=== PATIENT | male | born 1985 | race Caucasian/White ===

== ENCOUNTER 2017-02-23 07:03 | Emergency (ER) | payer SELFPAY ==
[~2017-02-23] VITALS: Ht 165.1 cm; Wt 75.0 kg
[2017-02-23 07:09] VITALS: Ht 165.1 cm; Wt 75.0 kg
--- NOTE | 2017-02-23 08:05 | RADRPT ---
PROCEDURE: XR Abdomen. CLINICAL INDICATION: Abdominal pain, constipation TECHNIQUE: AP abdomen x-ray. COMPARISON: None. FINDINGS: There is stool seen in the ascending colon. There is no evidence of bowel obstruction. There are no abnormal calcifications overlying the urinary tracts. The osseus structures are unremarkable. IMPRESSION: Stool is seen in the ascending colon without evidence of bowel obstruction. RPTAT:AAJJ Physician Carlie Date Time Electronically viewed and signed by Jung Gonzalez Physician on 02/23/2017 08:05 MARY/
[2017-02-23] MEDS ORDERED: DICY10CA60 PO (08:13)
[2017-02-23] MEDS ORDERED: PSYL1040 PO (08:13)
--- NOTE | 2017-02-23 08:22 | ERD ---
ER Documentation Chief Complaint Chief Complaint Patient states left upper quadrant abdomonal pain denies flank pain HPI This is a 31-year-old male presents to the ER with left lower quadrant abdominal pain that started 2 weeks ago. Pain is intermittent and worse whenever he is not able to have a bowel movement. Patient states he does feel constipated and has had difficulty having bowel movements. He denies any nausea vomiting or diarrhea. He denies any urinary frequency, dysuria, hematuria. Patient has not had any fevers or chills. He saw his primary care doctor who prescribed him Colace and ibuprofen. That Colace has not helped him and that ibuprofen made his stomach burning. Patient has an Appointment for an abdominal ultrasound later today. ROS 12 point review of systems was done, all negative except per HPI. Medications Home Meds Active Scripts Dicyclomine Hcl* (Bentyl*) 10 Mg Capsule, 10 MG PO QID for 3 Days, CAP Prov:SEBLE IBARRA 02/23/17 Psyllium Seed* (Metamucil* Powder) 1,040 Gm Powder, 10 GM PO TID for 7 Days, EA Prov:SEBLE IBARRA 02/23/17 Physical Exam Vitals Vital Signs Date Time Temp Pulse Resp B/P Pulse Ox O2 Delivery O2 Flow Rate FiO2 02/23/17 07:09 99.7 66 20 119/68 96 Physical Exam GENERAL: The patient is well developed and appropriate for usual state of health , in no apparent distress. HEENT: Atraumatic CHEST: Clear to auscultation bilaterally. There are no rales, wheezes or rhonchi. HEART: Regular rate and rhythm. No murmurs, clicks, rubs or gallops. ABDOMEN: Soft, nontender and nondistended. Good bowel sounds. No rebound or guarding. No gross peritonitis. No gross organomegaly or masses. No Hodgson sign or McBurney point tenderness. BACK: No midline or flank tenderness. NEURO: Alert and oriented. Results [address] [id number] Radiology Main Line: [phone] DIAGNOSTIC IMAGING REPORT Patient: LA SWAIN : 1985 Age: 31 Sex: M MR #: [id number] DOS: 10/20/17 0000 Ordering MD: SEBLE IBARRA PA-C [facility] Room/Bed: PROCEDURE: XR Abdomen. CLINICAL INDICATION: Abdominal pain, constipation TECHNIQUE: AP abdomen x-ray. COMPARISON: None. FINDINGS: There is stool seen in the ascending colon. There is no evidence of bowel obstruction. There are no abnormal calcifications overlying the urinary tracts. The osseus structures are unremarkable. IMPRESSION: Stool is seen in the ascending colon without evidence of bowel obstruction. RPTAT:AAJJ Jung Gonzalez Physician Date Time Electronically viewed and signed by Jung Gonzalez Physician on 02/23/2017 08: 05 MC/ CC: SEBLE IBARRA Procedures/MDM This is a 31-year-old male presents to the ER with left lower quadrant abdominal pain that started 2 weeks ago. Patient does have a recent history of constipation, and states that this makes his pain worse. Suspicion for acute abdomen such as diverticulitis, intra-abdominal abscess, mesenteric ischemia is low as patient's physical examination is completely benign he is well-appearing and not had a history of any fevers or chills further workup is not indicated at this time. Will be sent home with Metamucil and with Bentyl. He is to follow-up with his primary care doctor within 1-2 days return to ER sooner if symptoms worsen. My medical decision making sure with the patient he understands and agrees with plan. Departure Diagnosis: Primary Impression: Constipation Additional Impression: Abdominal pain Condition: Stable Patient Instructions: Abdominal Pain Additional Instructions: Llame al doctor MAANA y yury ernesto KYLIE PARA DENTRO DE 1-2 ENAMORADO.Dgale a la secretaria que nosotros le instruimos hacer esta kylie.Avise o llame si lloyd condicin se empeora antes de la kylie. Regresa aqui si peor o no mejor. SEBLE IBARRA Feb 23, 2017 08:22
[2017-02-23] MEDS ORDERED: DICYCLOMINE 10 MG CAP PO ONE (08:30)
[2017-02-23 08:44] VITALS: BP 128/68; PULSE 66; RESP 20; TEMP 98.9
== END 2017-02-23 08:45 | disposition home or self-care (01) ==
LOC: FTE 07:03
DX: K59.00 Constipation, unspecified (principal)
CPT/HCPCS: 74010